=== PATIENT | male | born 1985 | race Caucasian/White ===

== ENCOUNTER 2017-03-10 19:34 | Emergency (ER) | payer BC ==
--- NOTE | 2017-03-10 20:17 | NUR ---
CALLED FOR TRIAGE X3; NOT IN LOBBY AND NO ANSWER.
--- NOTE | 2017-03-10 20:26 | NUR ---
CALLED AGAIN; NO ANSWER
== END 2017-03-10 20:27 | disposition left against medical advice (07) ==
LOC: ER 19:46
DX: Z53.21 Procedure and treatment not carried out due to patient leaving prior to being seen by health care provider (principal)